=== PATIENT | male | born 1995 | race Caucasian/White ===

== ENCOUNTER 2018-04-21 20:14 | Emergency (ER) | payer SELFPAY ==
[2018-04-21 20:18] VITALS: BP 129/67; PULSE 84; RESP 16; TEMP 36.8; O2SAT 99
--- NOTE | 2018-04-21 20:22 | ED.GENADUL_ITS ---
Discharge Plan Disposition Patient Disposition: HOME Condition: Stable Discharge Details Chief Complaint: Orthopedic Clinical Impression: Contusion of right knee Primary Care Provider: None,None ED Provider: Jaylen Pineda Home Meds and New Rx's Prescriptions: No Action No Known Home Meds RF: 0 Discharge Instructions Instructions: Contusion in Adults (ED) Additional Instructions: You can take 1000mg tylenol and 600mg ibuprofen every 6 hours for pain as needed if you still have pain in a few weeks you can follow up with orthopedics. Referrals: Kota Montanez MD [ [facility]YS[facility]] - Medical Decision Making 22 yo male comes in after he slipped on ice earlier at work and landed on the anterior knee, no head trauma or loc, no headache or neck pain. Has full rom of the knee, no swelling, intact distal sensation and pulses, and is bearing weight. I suspect contusion, offered an xray to eval for fx though unlikely and he declined an xray at this time. He is worried about cartilage/ligament injury. I think this is also unlikely given no significant swelling of the knee and no laxity but have provider the number to orthopedics for f/u if wishes to f/u with them. Differential Diagnosis contusion, fx, strain HPI General Mode of arrival: ambulatory . Date/Time Provider Initiated Documentation: 04/21/18 20:22 . Limitations to Documentation: no limitations . Information obtained by: patient . History of Present Illness 22 year old M presents to the emergency department with the chief complaint of right knee pain, described as moderate, with intensity rated at 5. Quality is described as aching, and is localized to the right and lower extremity. Patient reports no radiation. Patient started experiencing this hour(s) (3) and it has been constant. Rest improves symptom(s), Movement worsens symptoms . Patient notes no other symptoms.. Patient did receive the following treatments prior to arrival, none Related Data Home Medications Medication Instructions Recorded Confirmed Unknown [No Known Home Meds] 04/21/18 04/21/18 Allergies Allergy/AdvReac Type Severity Reaction Status Date / Time amoxicillin Allergy Intermediate Unverified 04/21/18 20:25 General Stated Complaint: Orthopedic CECE: 4 Review of Systems Review of Systems All systems reviewed & are unremarkable except as noted in HPI and below Constitutional Denies fever(s) Cardiovascular Denies chest pain Gastrointestinal Denies abdominal pain PFSH Social History Smoking/Tobacco Use Status: Former Tobacco Use Exam Const General: no acute distress Orientation: alert HENMT Head: normal to inspection Ears: external ears normal General nose exam: external nose normal Mouth: moist mucous membranes Eyes General: appearance normal, both eyes and all related structures Neck Neck: normal visual inspection Resp Effort & Inspection: normal respiratory effort and able to speak in complete sentences Cardio Rate: regular rate Skin General skin exam: no rashes or lesions noted Neuro General: alert and oriented x3 Extrem General: normal to inspection Psych Mental Status: mental status grossly normal Course Vital Signs Temperature 36.8 C 04/21/18 20:18 Pulse 84 04/21/18 20:18 Respiratory Rate 16 04/21/18 20:18 Blood Pressure 129/67 04/21/18 20:18 Pulse Oximetry 99 04/21/18 20:18 Temperature 36.8 C 04/21/18 20:18 Temperature Source Skin 04/21/18 20:18 Pulse 84 04/21/18 20:18 Respiratory Rate 16 04/21/18 20:18 Blood Pressure 129/67 04/21/18 20:18 Pulse Oximetry 99 04/21/18 20:18 Oxygen Delivery Method Room Air 04/21/18 20:18 Oxygen Flow Rate 0 04/21/18 20:18 Pain Level 3 04/21/18 20:18
[2018-04-21 20:37] VITALS: BP 129/67; PULSE 84; RESP 16; TEMP 36.8; O2SAT 99
== END 2018-04-21 20:40 | disposition home or self-care (01) ==
PROVIDERS: Emergency Provider Emergency Medicine
DX: S80.01XA Contusion of right knee, initial encounter (principal); W00.0XXA Fall on same level due to ice and snow, initial encounter; Y99.0 Civilian activity done for income or pay
CPT/HCPCS: 99282

== ENCOUNTER 2022-08-23 14:09 | Outpatient (REF) | payer SELFPAY | END 2022-08-23 14:10 | disposition home or self-care (01) | LOC: NCHCN 14:09 | PROVIDERS: Visit Provider Nurse Practitioner Family | DX: E03.9 Hypothyroidism, unspecified (principal) | CPT/HCPCS: 84443 ==

== ENCOUNTER 2022-10-13 15:57 | Outpatient (REF) | payer SELFPAY ==
[2022-10-13 17:05] LABS: TSH 2.76 uIU/mL (0.36-3.74)
== END 2022-10-13 15:58 | disposition home or self-care (01) ==
LOC: NCHCN 15:57
PROVIDERS: Visit Provider Nurse Practitioner Family
DX: E03.9 Hypothyroidism, unspecified (principal)
CPT/HCPCS: 84443

== ENCOUNTER 2024-05-11 11:39 | Outpatient (REF) | payer SELFPAY ==
[2024-05-11 16:00] LABS: FREE T4 0.93 ng/dL (0.76-1.46); TSH 5.79 uIU/mL (0.36-3.74)
[2024-05-11 22:03] LABS: T3, Total 151 ng/dL (97-169)
== END 2024-05-11 11:40 | disposition home or self-care (01) ==
LOC: NCHCN 11:39
PROVIDERS: Visit Provider Nurse Practitioner Family
DX: E03.9 Hypothyroidism, unspecified (principal)
CPT/HCPCS: 84439; 84443; 84480

== ENCOUNTER 2024-05-16 02:34 | Outpatient (CLI) | payer SELFPAY ==
--- NOTE | 2024-05-16 07:30 | DI.US_ITS ---
APPROVED REPORT EXAM: Comprehensive 2D, Doppler, and color-flow Echocardiogram Patient Location: Out-Patient Retrofit Installer: Bryon Martines RDCS (AE) Indications: Syncope and collapse Other Information Study Quality: Good Conclusion Normal left ventricular wall thickness and chamber size. Ejection fraction is 60 to 65%. Wall motio n is normal Normal right ventricular size and function Both atria are normal in size There is no structural or hemodynamically significant valvular disease Wall motion Left Ventricle The left ventricle is normal size. Left ventricular systolic function is normal. The left ventricular ejection fraction is within the normal range. There is normal left ventricular wall thickness. There is normal LV segmental wall motion. The left ventricular diastolic function is normal. There is no v entricular septal defect visualized. LVEF is 60-65%. Right Ventricle The right ventricle is normal size. The right ventricular systolic function is normal. Atria The left atrium size is normal. The right atrium size is normal. The interatrial septum is intact wit h no evidence for an atrial septal defect. Aortic Valve The aortic valve is normal in structure. Aortic valve is trileaflet. There is no aortic valvular sten osis. No aortic regurgitation is present. Mitral Valve The mitral valve is normal in structure. No evidence of mitral valve stenosis. Trace to mild mitral r egurgitation. Tricuspid Valve The tricuspid valve is normal in structure. There is no tricuspid valve stenosis. Trace to mild tricu spid regurgitation. The RVSP is 28 mmHg. Pulmonic Valve The pulmonary valve is normal in structure. There is no pulmonic valvular stenosis. Trace to mild pul hoda regurgitation. Great Vessels The aortic root is normal in size. The ascending aorta is normal in size. Aortic arch is normal in ca liber. IVC is normal in size and collapses >50% with inspiration. Pericardium There is no pericardial effusion. 2D Dimensions IVSD d PLAX 0.84 cm M: 0.6-1.2 Ao Root d 3.11 cm M: 3.1 - 3.7 LVPW d PLAX 0.84 cm M: 0.6 - 1.2 Ao Asc Diam d 3.25 cm M: 2.6 - 3.4 LVID d PLAX 5.03 cm M: 4.2 - 5.8 LVDs 3.24 cm M: 2.5 - 4.0 LV EF Teichholz 64.8 % FS 35.57 % LV EDV (Teich) 120.2 mL LV ESV (Teich) 42.3 mL Stroke Vol Index (Teich) 37.59 M-Mode TAPSE 1.70 cm (M/F) >1.7 Auto EF LV EDV A4C 121.5 mL LV EDV A2C 117.8 mL LV EDV BP 119.3 mL LV ESV A4C 48.0 mL LV ESV A2C 42.1 mL LV ESV BP 45.2 mL LVEF(%) A4C 60.5 % LVEF(%) A2C 64.3 % LVEF(%) BP 62.1 % LV SV A4C 73.5 ml LV SV A2C 75.8 ml LV SV BP 74.1 ml LV CO A4C 5.1 L/min LV CO A2C 5.6 L/min LV CO BP 5.4 L/min HR A4C 69.63 BPM HR A2C 73.77 BPM LV EDV Index (BP) LA Volume LA Length A4C 4.3 cm LA Length A2C 3.7 cm LA Area A4C s 10.36 cm2 LA Area A2C s 11.60 cm2 LA Vol A4C A-L 21.39 mL LA Vol A2C A-L 31.24 mL LA Vol Biplane A-L 27.9 mL LA Vol/BSA A4C A-L LA Vol/BSA A2C A-L LA Vol/BSA BP A-L 13.5 mL/m2 LA Vol A4C MOD 19.0 mL LA Vol A2C MOD 30.1 mL LA Vol BP MOD 25.7 mL RA Volume RA Area A4C 10.9 cm2 RA ESV A4C (A-L) 24.7mL RA Vol/BSA A4C A-L RA Length A4C 4.1 cm RA ESV A4C (MOD) 23.7mL LV Diastology MV E' medial 0.105 (>0.07 m/s) MV E Vmax 0.78 (0.4-1.3 m/s) MV E/E' MED 7.38 (<14) MV A Vmax 0.50 (0.4-1.3 m/s) MV E' lateral 0.164 (>0.1 m/s) E/A Ratio 1.6 MV E/E' LAT 4.72 (<14) MV E' Average 0.135 m/s MV E/E'(average) 5.76 Aortic Valve AoV Vmax 1.15 m/s LVOT Vmax 1.20 m/s AoV Peak Grad 5.3 mmHg LVOT Peak Grad 5.8 mmHg AoV Area (Vmax) 4.03 cm2 LVOT VTI 0.250 m AoV VTI 0.251 m LVOT Mean Grad 2.8 mmHg AoV Mean Angel. 0.80 m/s LVOT SV 96.36 mL AoV Mean Grad 2.9 mmHg LVOT Diam s 2.20 cm AoV Area (VTI) 3.83 cm2 AV Regurg Peak Gr. 5.31 mmHg Velocity Ratio 1.04 Mitral Valve MV DT 160 (160-240 msec) MV Vmax TIPS 0.79 m/s MV Mean Grad 0.6 (<2mmHg) MV VTI 0.224 m Pulmonary Valve PV Vmax 0.89 (0.5-1.5 m/s) RVOT Vmax 0.69 m/s PV Peak Grad 3.2 mmHg RVOT Peak Gr. 1.9 mmHg PV Mean Angel 0.62 m/s RVOT VTI 0.161 m PV Mean Grad 1.8 mmHg RVOT Mean Gr. 1.1 mmHg Tricuspid Valve RA Pressure 3.00 mmHg TR Vmax 2.50 m/s TR Peak Grad 24.9 mmHg RVSP (TR) 28.0 mmHg
== END 2024-05-16 02:54 ==
PROVIDERS: PCP Nurse Practitioner Family; Visit Provider Internal Medicine Cardiovascular Disease
DX: R55 Syncope and collapse (principal)
CPT/HCPCS: 93306